=== PATIENT | male | born 1955 | race Caucasian/White ===

== ENCOUNTER 2020-11-16 14:35 | Emergency (ER) | payer BC, SELFPAY ==
--- NOTE | ~2020-11-16 | XR_ITS ---
EXAMINATION: XR chest 2V DATE: 11/16/2020 15:12 INDICATION: Cough and fever and shortness of breath. TECHNIQUE: Frontal and lateral views of the chest were obtained. COMPARISON: None. FINDINGS: There are airspace opacities in right lung upper lobe, consistent with pneumonia. No pleura l effusion or pneumothorax. The heart size is normal. IMPRESSION: 1. Right upper lobe pneumonia. Reviewed, dictated and finalized at location A.
--- NOTE | ~2020-11-16 | CT_ITS ---
EXAMINATION: CTA chest PE protocol EXAM DATE: 11/16/2020 19:52 INDICATION: SOB, elevated dimer. TECHNIQUE: Spiral CTA of the chest (pulmonary arteries) was performed with 100 cc Omnipaque 350 intr avenous contrast injection. Images were acquired during the pulmonary arterial phase. Coronal maxi mum intensity projection 3D-reconstructions were created by the technologist on dedicated workstation . Axial, coronal and sagittal reformatted images were reviewed. The dose-length product (DLP) for t his examination was 315.48 mGy-cm. The exposure was tailored according to patient size (auto mA exp osure control), and iterative reconstruction (ASIR) was used as additional dose reduction technique. There is no prior study for comparison. FINDINGS: There are no pulmonary emboli in the 1st through 3rd order (central and interlobar) pulmon lillie arteries. Some loss of attenuation in the segmental pulmonary arteries from respiratory motion, some segmental regions not confidently evaluated. No intraluminal filling defects identified. No th oracic aortic dissection. There is ill-defined right upper lobe groundglass density with regions of confluence along the bronch ovascular distribution, most likely pneumonia. Bronchoalveolar cell carcinoma not excludable, follow- up chest x-ray recommended to resolution. There are no pleural or pericardial effusions. Tracheobro nchial tree is patent. There is no mediastinal, hilar or axillary lymphadenopathy. There is no pn eumothorax. Heart normal in size. There is mild coronary arterial calcification, arterial scleros is. There are 2 liver cysts, largest right liver lobe medially at 3.4 cm. There is thoracic spondyl osis without osteoblastic or osteolytic lesions identified. IMPRESSION: 1. No central pulmonary emboli. Segmental arteries not confidently evaluated from respiratory motion . 2. Multifocal right upper lobe airspace disease, would favor bacterial pneumonia over other infectio us etiology or bronchoalveolar cell cancer. Follow-up chest x-ray indicated to resolution. Reviewed, dictated and finalized at location A. IMPRESSION: 1. No central pulmonary emboli. Segmental arteries not confidently evaluated f rom respiratory motion. 2. Multifocal right upper lobe airspace disease, would favor bacterial pneumon ia over other infectious etiology or bronchoalveolar cell cancer. Follow-up rios st x-ray indicated to resolution.
--- NOTE | 2020-11-16 14:40 | ECG_ITS ---
Measurements Intervals [place] Rate: 102 P: 62 SD: 140 QRS: -14 QRSD: 138 T: 13 QT: 328 QTc: 428 Interpretive Statements SINUS TACHYCARDIA RIGHT BUNDLE BRANCH BLOCK ABNORMAL ECG Electronically Signed On 11-16-2020 15:07:21 CDT by Rai Steward D.O.
[2020-11-16 14:42] VITALS: BP 123/73; PULSE 102; RESP 14; TEMP 38.1; O2SAT 99
[2020-11-16 15:07] LABS: Basophils Absolute Auto 0.1 K/mm3 (0.0-0.1); Basophils Percent Auto 0.5 % (0.2-1.2); Eosinophils Absolute Auto 0.1 K/mm3 (0-0.3); Eosinophils Percent Auto 1.2 % (0-4.4); Hemoglobin 13.6 g/dL (14.0-18.0); Immature Granulocyte Absolute 0.07 K/mm3 (0.00-0.031); Immature Granulocyte Percent A 0.6 % (0-0.5); Lymphocytes Absolute Auto 0.97 K/mm3 (0.9-3.2); Lymphocytes Percent Auto 8.9 % (18.3-44.2); Mean Corpuscular HGB Conc 33.2 g/dl (32-36); Mean Corpuscular Hemoglobin 29.6 pg (26-34); Mean Corpuscular Volume 89.1 fl (80-100); Mean Platelet Volume 10.5 fl (7.4-10.4); Monocytes Absolute Auto 1.1 K/mm3 (0.1-0.6); Monocytes Percent Auto 10.2 % (2.6-8.5); Neutrophils Absolute Auto 8.6 K/mm3 (1.3-6.7); Neutrophils Percent Auto 78.6 % (45.5-73.1); Platelet Count Result 294 k/mm3 (150-375); Red Cell Distribution Width 12.8 % (11.5-14.5); White Blood Count 10.9 K/mm3 (4.5-10.0)
[2020-11-16 15:15] LABS: Anion Gap 7 mmol/L (8-16); Blood Urea Nitrogen 13 mg/dL (9-20); Calcium 8.8 mg/dL (8.4-10.2); Carbon Dioxide 30 mmol/L (22-30); Chloride 100 mmol/L (98-107); Estimated CRCL calculation 65 ml/min; Estimated Glomerular Filt Rate > 60; Glucose 117 mg/dL (65-110); Potassium 4.1 mmol/L (3.4-5.0); Sodium 137 mmol/L (137-145)
[2020-11-16 17:25] LABS: Add Urine Microscopic? YES; Appearance Urine Clear (Clear); Bacteria Urine Trace /hpf; Bilirubin Urine 1+ (Negative); Blood Urine Negative (Negative); Color Urine Amber (Yellow); Glucose Urine UA Negative (Negative); Ketones Urine Trace mg/dL (Negative); Leukocyte Esterase Ur Negative LEU/UL (Negative); Mucus Urine Few /lpf; Nitrate Urine Negative (Negative); Protein Urine 2+ mg/dL (Negative); RBC Urine 21-50 /hpf (0-2); Specific Grav Ur 1.025 (1.001-1.035); Squamous Epithelial Cell Urine Rare /hpf (Few); WBC Urine 0-3 /hpf
[2020-11-16 18:20] VITALS: BP 131/84; PULSE 98; RESP 23; TEMP 36.8; O2SAT 99
[2020-11-16] MEDS: ALBUTEROL SULFATE (*SP) AEROSOL 1 PUFF 4 PUFF INHALATION (18:38)
--- NOTE | 2020-11-16 18:47 | ED.URI ---
HPI - URI/Sore Throat General Chief Complaint: Upper Respiratory Infection Stated Complaint: cough Time Seen by Provider: 11/16/20 17:57 Source: patient Mode of arrival: ambulatory Limitations: no limitations History of Present Illness HPI Narrative: This is a 65-year-old male that presents to the emergency department for cold symptoms noted since yesterday. Reports fever, cough, shortness of breath. Reports he is COVID vaccinated. Denies chest pain or lower extremity edema. Related Data Home Medications Medication Instructions Recorded Confirmed No Home Medications 11/16/20 11/16/20 Allergies Allergy/AdvReac Type Severity Reaction Status Date / Time No Known Allergies Allergy Unverified 11/16/20 18:46 Review of Systems Review of Systems: CONSTITUTIONAL: Reports fever, chills CARDIOVASCULAR: Denies chest pain, or edema. RESPIRATORY: Reports cough and dyspnea. All systems reviewed & are unremarkable except as noted in HPI and below PMFSH Past Medical History Medical History (Updated 11/16/20 @ 20:57 by Heaven Hartley PA-C) No active medical problems Social History Social History (Updated 11/16/20 @ 18:53 by Heaven Hartley PA-C) Smoking status: Never smoker Exam Narrative: GENERAL: Well-appearing, well-nourished, and in no acute distress. HEAD: Normocephalic, atraumatic. EYES: EOMI. ENT: Nares clear, no rhinorrhea or epistaxis. Mucous membranes moist. Oropharynx without tonsillar hypertrophy exudate or other lesions. Bilateral TMs pearly chun non-bulging NECK: Supple. No adenopathy or masses. CHEST: No respiratory distress. Rales in the right upper lobe. No wheezes or rhonchi HEART: Regular rate and rhythm. No murmur heard. Normal peripheral pulses. EXTREMITIES: Normal range of motion. No edema. SKIN: Warm, dry, no rash. NEURO: No focal deficits. Alert and oriented x3. PSYCH: Normal mood and affect Course Vital Signs Vital signs: Vital Signs Temperature 100.5 F H 11/16/20 14:42 Pulse Rate 102 H 11/16/20 14:42 Respiratory Rate 14 11/16/20 14:42 Blood Pressure 123/73 11/16/20 14:42 Pulse Oximetry 99 11/16/20 14:42 Temperature 98.3 F 11/16/20 18:20 Pulse Rate 98 11/16/20 18:20 Respiratory Rate 23 H 11/16/20 18:20 Blood Pressure 131/84 11/16/20 18:20 Pulse Oximetry 99 11/16/20 18:20 MDM - URI/Sore Throat Lab Data Attestation: I reviewed the patient's lab results. Result diagrams: 11/16/20 14:46 11/16/20 14:46 Labs: Lab Results 11/16/20 11/16/20 11/16/20 Range/Units 14:46 14:46 16:49 WBC 10.9 H (4.5-10.0) K/mm3 RBC 4.60 (4.6-6.20) M/mm3 Hgb 13.6 L (14.0-18.0) g/dL Hct 41.0 L (42.0-52.0) % MCV 89.1 (80-100) fl MCH 29.6 (26-34) pg MCHC 33.2 (32-36) g/dl RDW 12.8 (11.5-14.5) % Plt Count 294 (150-375) k/mm3 MPV 10.5 H (7.4-10.4) fl Immature Gran % (Auto) 0.6 H (0-0.5) % Neut % (Auto) 78.6 H (45.5-73.1) % Lymph % (Auto) 8.9 L (18.3-44.2) % Sequoyah % (Auto) 10.2 H (2.6-8.5) % Eos % (Auto) 1.2 (0-4.4) % Baso % (Auto) 0.5 (0.2-1.2) % Lymph # (Auto) 0.97 (0.9-3.2) K/mm3 Sequoyah # (Auto) 1.1 H (0.1-0.6) K/mm3 Eos # (Auto) 0.1 (0-0.3) K/mm3 Baso # (Auto) 0.1 (0.0-0.1) K/mm3 Abs Immat Gran (auto) 0.07 H (0.00-0.031) K/mm3 Absolute Neuts (auto) 8.6 H (1.3-6.7) K/mm3 Absolute Nucleated RBC 0.0 (0.0-0.012) K/mm3 Nucleated RBC % 0.0 (0.0-0.2) % PT (11.1-14.7) Seconds INR APTT (22.3-36.8) SECONDS D-Dimer (<0.48) ug/mL Sodium 137 (137-145) mmol/L Potassium 4.1 (3.4-5.0) mmol/L Chloride 100 (98-107) mmol/L Carbon Dioxide 30 (22-30) mmol/L Anion Gap 7 L (8-16) mmol/L BUN 13 (9-20) mg/dL Creatinine 0.90 (0.7-1.3) mg/dL Estim Creat Clear Calc 65 ml/min Estimated GFR > 60 (59 - ) Glucose 117 H (65-110) mg/dL Calcium 8.8 (8.4-10.2) mg/dL [place]
[2020-11-16] MEDS: SODIUM CHLORIDE 0.9% IV 500 ML 999 ML IV CONT (18:49)
[2020-11-16 19:11] LABS: INR 1.1; Prothrombin Time 13.9 Seconds (11.1-14.7)
[2020-11-16 19:12] LABS: Partial Thromboplastin Time 29.6 SECONDS (22.3-36.8)
[2020-11-16 19:17] LABS: D Dimer 0.72 ug/mL (<0.48)
[2020-11-16 19:19] LABS: Troponin I < 0.012 ng/mL (0.000-0.034)
[2020-11-16 21:29] VITALS: BP 106/76; PULSE 91; RESP 18; TEMP 37.1; O2SAT 96
[2020-11-17 17:37] LABS: SARS-CoV-2 RNA PCR Negative
== END 2020-11-16 21:31 | disposition home or self-care (01) ==
PROVIDERS: Physician Assistant; Emergency Provider Emergency Medicine
DX: Z20.822 Contact with and (suspected) exposure to COVID-19 (principal); J18.9 Pneumonia, unspecified organism
CPT/HCPCS: 36415; 71046; 71275; 80048; 81001; 84484; 85025; 85380; 85610; 85730; 87040; 87804; 93005; 96365; 96367; 96375; 99284; A9270; C9803; J0131; J0456; J0696; J7040; Q9967; U0003; U0005

== ENCOUNTER 2021-02-06 01:07 | Day surgery (SDC) | payer BC, SELFPAY ==
[2021-01-24 13:53] VITALS: BMI 25.9
[2021-02-06 07:52] VITALS: BP 121/79; PULSE 72; RESP 16; TEMP 36.4; O2SAT 100; BMI 24.7
[2021-02-06] MEDS: LACTATED RINGERS 1,000 ML 150 ML IV CONT (08:05)
--- NOTE | 2021-02-06 08:19 | WPDGICN ---
Assessment and Plan Assessment and plan (1) Encounter for screening colonoscopy: Code(s): Z12.11 - Encounter for screening for malignant neoplasm of colon Status: Acute Assessment and Plan: Patient presents for screening colonoscopy. Appears to be at average risk for colon polyps. GI Consult Note Consult date/time: 02/06/21 08:19 HPI: Everton Osman is a 65 year old male Presents for screening colonoscopy. Is been more than 10 years since last exam. Patient reports his current weight appetite and bowel movements are normal. He denies abdominal pain. He has had no bleeding. Family history is noncontributory. Review of Systems Review of Systems: All systems reviewed & are unremarkable except as noted in HPI and below PMFSH Past Medical History Medical History Pneumonia Social History Social History Smoking status: Never smoker Alcohol intake: never Substance use: never Substance use type: does not use Living arrangements: with family Spiritual care concerns: No Meds Home Medications and Allergies Home Medications Medication Instructions Recorded Confirmed Type fluticasone propionate 50 1 spray INTRANASAL DAILY PRN 11/23/20 01/24/21 History mcg/actuation nasal spray,suspension ibuprofen 200 mg capsule 200 mg PO DAILY PRN cap 11/23/20 01/24/21 History multivitamin 1 tablet PO DAILY 11/23/20 01/24/21 History atorvastatin 40 mg tablet 40 mg PO DAILY #30 tablet 11/29/20 01/24/21 Rx alendronate-vitamin D3 1 tablet PO DAILY 01/24/21 01/24/21 History lactobacillus combination no.8 1 cell PO DAILY 01/24/21 01/24/21 History [Adult Probiotic] Allergies Allergy/AdvReac Type Severity Reaction Status Date / Time No Known Allergies Allergy Verified 02/06/21 07:51 Vital Signs Vital Signs - 24 hr 02/06/21 07:52 Temperature 97.6 F Pulse Rate 72 Respiratory Rate 16 Blood Pressure 121/79 Pulse Oximetry 100 Exam Narrative: Fit physical exam reveals patient to be alert. Vital signs stable. HEENT exam is unremarkable. Patient is anicteric. Lungs are clear to auscultation and percussion. Heart is without murmur or extra sounds. Abdominal exam bowel sounds are present soft nontender with no hepatosplenomegaly. Digital external rectal exam is normal.
--- NOTE | 2021-02-06 08:24 | WPDANESEPPF ---
Anes - Initial Pre Proc Eval Procedure: Operation Date: 02/06/21 09:00 Proposed Procedures p Screening Colonoscopy - Heath Bautista MD Date/Time: 02/06/21 08:24 Surgeon: Heath Bautista MD Pre Op Diagnosis: neoplasm screening Patient Data Age: 65 Gender: M Height: 1.7 m Weight: 71.8 kg Last Vital Signs Temp 36.4 C 02/06/21 07:52 Pulse 72 02/06/21 07:52 Resp 16 02/06/21 07:52 BP 121/79 02/06/21 07:52 Pulse Ox 100 02/06/21 07:52 Allergies Allergy/AdvReac Type Severity Reaction Status Date / Time No Known Allergies Allergy Verified 02/06/21 07:51 Home Medications Medication Instructions Recorded Confirmed Type fluticasone propionate 50 1 spray INTRANASAL DAILY PRN 11/23/20 01/24/21 History mcg/actuation nasal spray,suspension ibuprofen 200 mg capsule 200 mg PO DAILY PRN cap 11/23/20 01/24/21 History multivitamin 1 tablet PO DAILY 11/23/20 01/24/21 History atorvastatin 40 mg tablet 40 mg PO DAILY #30 tablet 11/29/20 01/24/21 Rx alendronate-vitamin D3 1 tablet PO DAILY 01/24/21 01/24/21 History lactobacillus combination no.8 1 cell PO DAILY 01/24/21 01/24/21 History [Adult Probiotic] Patient hx anesthesia problems: none Family hx anesthesia problems: none Results Review: All pre-operative results and documents have been reviewed as part of the pre-operative evaluation. [facility] Past Medical History Medical History (Updated 02/06/21 @ 08:24 by Roni James MD) Hyperlipidemia Pneumonia Surgical History Surgical History (Updated 02/06/21 @ 08:24 by Roni James MD) H/O colonoscopy Social History Social History Smoking status: Never smoker Alcohol intake: never Substance use: never Substance use type: does not use Living arrangements: with family Spiritual care concerns: No Anes - Eval Final PreProcedure Day of Procedure 02/06/21 08:24 Patient weight: normal Heart: regular rate and rhythm Lungs: clear to auscultation Airway: Mallampati scale class II Neurological: alert and oriented Last oral intake: >/= 8 hours ASA classification: II Emergent: no Anesthetic plan: proceed Anesthesia type and monitoring: general GIVS and standard monitoring Results Review: All pre-operative results and documents have been reviewed as part of the pre-operative evaluation. Informed Consent: The patient's anesthetic plan and its attendant risks and benefits were discussed with the patient/family/POA. Questions were solicited and answers provided to the satisfaction of the patient/family/POA.
[2021-02-06 09:04] VITALS: BP 98/62; PULSE 76; RESP 22; O2SAT 97
[2021-02-06 09:14] VITALS: BP 105/64; PULSE 62; RESP 20; O2SAT 97
[2021-02-06 09:24] VITALS: BP 112/81; PULSE 68; RESP 20; O2SAT 98
== END 2021-02-06 09:52 | disposition home or self-care (01) ==
PROVIDERS: PCP Nurse Practitioner; Visit Provider Internal Medicine Gastroenterology
PROC: 0DJD8ZZ Inspection of Lower Intestinal Tract, Via Natural or Artificial Opening Endoscopic (ICD-10-PCS; CPT 45378; principal; 2021-02-06 09:00)
DX: Z12.11 Encounter for screening for malignant neoplasm of colon (principal); K57.30 Diverticulosis of large intestine without perforation or abscess without bleeding; K64.8 Other hemorrhoids; E78.5 Hyperlipidemia, unspecified
CPT/HCPCS: 45378; J2704; J7120

== ENCOUNTER 2021-03-18 10:13 | Emergency (ER) | payer BC, SELFPAY ==
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
[2021-03-18 10:27] VITALS: BP 123/71; PULSE 81; RESP 16; TEMP 36.3; O2SAT 98
[2021-03-18] MEDS: TETANUS,DIPHTHERIA,AC PERTUSSIS ADULT (0.5 ML) BOOSTRIX IM (11:21)
== END 2021-03-18 11:54 | disposition home or self-care (01) ==
PROVIDERS: Emergency Provider Nurse Practitioner Family
DX: S61.401A Unspecified open wound of right hand, initial encounter (principal); V48.5XXA Car driver injured in noncollision transport accident in traffic accident, initial encounter; Z23 Encounter for immunization; E78.5 Hyperlipidemia, unspecified
CPT/HCPCS: 73130; 90471; 90715; 99213; G0463

== ENCOUNTER 2021-04-03 10:22 | Outpatient (CLI) | payer BC, SELFPAY ==
--- NOTE | ~2021-04-03 | XR_ITS ---
EXAMINATION: XR chest 2V 04/03/2021 10:37 INDICATION: Follow-up pneumonia PROCEDURE: 2 view chest COMPARISON: 11/16/2020 FINDINGS: The lungs are clear. The cardiomediastinal silhouette is within normal limits. There are no pleural effusions. There is no pneumothorax suspected. IMPRESSION: 1: NO ACUTE CARDIOPULMONARY DISEASE. Reviewed, dictated and finalized at location B. ESS RIGGER
== END 2021-04-03 10:23 | disposition home or self-care (01) ==
LOC: ANHIMG 10:24
PROVIDERS: PCP Family Medicine; Visit Provider Nurse Practitioner
DX: J18.9 Pneumonia, unspecified organism (principal)
CPT/HCPCS: 71046

== ENCOUNTER 2021-05-15 00:39 | Day surgery (SDC) | payer BC, SELFPAY ==
[2021-05-03 16:55] VITALS: BMI 24.7
[2021-05-15 11:10] VITALS: BP 133/85; PULSE 85; RESP 18; TEMP 36.3; O2SAT 95
[2021-05-15] MEDS: LACTATED RINGERS 1,000 ML 150 ML IV CONT (11:20)
--- NOTE | 2021-05-15 11:28 | WPDGICN ---
Assessment and Plan Assessment and plan (1) Dysphagia: Code(s): R13.10 - Dysphagia, unspecified Status: Acute Assessment and Plan: Patient has difficulty swallowing suggesting that esophagus may be narrowed or there may be a pouch in the throat. Plan is for EGD to assess more thoroughly. Further recommendations will be given after endoscopy. GI Consult Note Consult date/time: 05/15/21 11:28 HPI: Everton Osman is a 66 year old male presents for EGD. Patient complains of difficulty swallowing over the last 6 months. He will swallow food and it will catch in the upper most portion of his throat. Often regurgitates chunks of food. He states he has produce that is phlegm that will be brought up as well. Denies any weight loss or bleeding. He states larger pieces of food typically bread will get caught. He denies any bleeding. He denies heartburn. His family history is significant for a sister with esophageal web requiring dilatation frequently. Patient presents today for EGD to evaluate more thoroughly. Patient has a history of colonoscopy most recently January 2021 that was unremarkable. Review of Systems Review of Systems: All systems reviewed & are unremarkable except as noted in HPI and below PMFSH Past Medical History Medical History Hyperlipidemia Pneumonia Surgical History Surgical History H/O colonoscopy Social History Social History Smoking status: Never smoker Alcohol intake: never Substance use: never Substance use type: does not use Living arrangements: with family Spiritual care concerns: No Meds Home Medications and Allergies Home Medications Medication Instructions Recorded Confirmed Type Adults Multivitamin 1 cap PO DAILY 05/03/21 05/03/21 History Allergies Allergy/AdvReac Type Severity Reaction Status Date / Time No Known Allergies Allergy Verified 05/15/21 11:09 Vital Signs Vital Signs - 24 hr 05/15/21 11:10 Temperature 97.4 F L Pulse Rate 85 Respiratory Rate 18 Blood Pressure 133/85 Pulse Oximetry 95 Exam Narrative: Physical exam reveals patient to be alert. Vital signs stable. HEENT exam is unremarkable. Patient is anicteric. Lungs are clear to auscultation and percussion. Heart is without murmur or extra sounds. Abdominal exam bowel sounds are present soft nontender with no organomegaly.
--- NOTE | 2021-05-15 12:04 | WPDANESEPPF ---
Anes - Initial Pre Proc Eval Procedure: Operation Date: 05/15/21 12:30 Proposed Procedures p Esophagogastroduodenoscopy - Heath Bautista MD Date/Time: 05/15/21 12:04 Surgeon: Heath Bautista MD Pre Op Diagnosis: dysphagia Patient Data Age: 66 Gender: M Height: 1.7 m Weight: 69.3 kg Last Vital Signs Temp 97.4 F L 05/15/21 11:10 Pulse 85 05/15/21 11:10 Resp 18 05/15/21 11:10 BP 133/85 05/15/21 11:10 Pulse Ox 95 05/15/21 11:10 Allergies Allergy/AdvReac Type Severity Reaction Status Date / Time No Known Allergies Allergy Verified 05/15/21 11:09 Home Medications Medication Instructions Recorded Confirmed Type Adults Multivitamin 1 cap PO DAILY 05/03/21 05/03/21 History Patient hx anesthesia problems: none Family hx anesthesia problems: none Results Review: All pre-operative results and documents have been reviewed as part of the pre-operative evaluation. PMFSH Past Medical History Medical History Hyperlipidemia Pneumonia Surgical History Surgical History H/O colonoscopy Social History Social History Smoking status: Never smoker Alcohol intake: never Substance use: never Substance use type: does not use Living arrangements: with family Spiritual care concerns: No Anes - Eval Final PreProcedure Day of Procedure 05/15/21 12:04 Patient weight: normal Heart: regular rate and rhythm Lungs: clear to auscultation Airway: Mallampati scale class II Neurological: alert and oriented Last oral intake: >/= 8 hours ASA classification: II Emergent: no Anesthetic plan: proceed Anesthesia type and monitoring: general GIVS and standard monitoring Results Review: All pre-operative results and documents have been reviewed as part of the pre-operative evaluation. Informed Consent: The patient's anesthetic plan and its attendant risks and benefits were discussed with the patient/family/POA. Questions were solicited and answers provided to the satisfaction of the patient/family/POA.
[2021-05-15 12:27] VITALS: BP 108/79; PULSE 76; RESP 15; O2SAT 98
[2021-05-15 12:37] VITALS: BP 115/82; PULSE 72; RESP 10; O2SAT 100
[2021-05-15 12:47] VITALS: BP 117/84; PULSE 72; RESP 10; O2SAT 100
== END 2021-05-15 13:03 | disposition home or self-care (01) ==
PROVIDERS: PCP Family Medicine; Visit Provider Internal Medicine Gastroenterology
PROC: 0DJ08ZZ Inspection of Upper Intestinal Tract, Via Natural or Artificial Opening Endoscopic (ICD-10-PCS; CPT 43235; principal; 2021-05-15 12:30)
DX: K22.2 Esophageal obstruction (principal); K22.10 Ulcer of esophagus without bleeding
CPT/HCPCS: 43239; 43450; 88305; J2704; J7120

== ENCOUNTER 2021-07-17 01:23 | Day surgery (SDC) | payer BC, SELFPAY ==
[2021-06-28 14:03] VITALS: BMI 26.6
--- NOTE | 2021-07-17 09:08 | P.PNAN_ITS ---
Anes - Initial Pre Proc Eval Procedure: Operation Date: 07/17/21 11:00 Proposed Procedures p Esophagogastroduodenoscopy - Heath Bautista MD Date/Time: 07/17/21 09:08 Surgeon: Heath Bautista MD Pre Op Diagnosis: Esophageal stricture Patient Data Age: 66 Gender: M Height: 1.68 m Weight: 75 kg Allergies Allergy/AdvReac Type Severity Reaction Status Date / Time No Known Allergies Allergy Verified 06/28/21 14:04 Home Medications Medication Instructions Recorded Confirmed Type Adults Multivitamin 1 cap PO DAILY 05/03/21 06/28/21 History pantoprazole 40 mg tablet,delayed 40 mg PO BID 06/28/21 06/28/21 History release Patient hx anesthesia problems: none Family hx anesthesia problems: none Results Review: All pre-operative results and documents have been reviewed as part of the pre- operative evaluation. [facility] Past Medical History Medical History (Updated 07/17/21 @ 09:09 by Oswaldo Camacho MD) Hyperlipidemia Overweight (BMI 25.0-29.9) Pneumonia Prostate CA Surgical History Surgical History H/O colonoscopy Social History Social History Smoking status: Never smoker Alcohol intake: never Substance use: never Substance use type: does not use Living arrangements: with family Spiritual care concerns: No Anes - Eval Final PreProcedure Day of Procedure 07/17/21 09:08 Patient weight: overweight Heart: regular rate and rhythm Lungs: clear to auscultation Airway: Mallampati scale class II Neurological: alert and oriented Last oral intake: >/= 8 hours ASA classification: III Emergent: no Anesthetic plan: proceed Anesthesia type and monitoring: general GIVS and standard monitoring Results Review: All pre-operative results and documents have been reviewed as part of the pre- operative evaluation. Informed Consent: The patient's anesthetic plan and its attendant risks and benefits were discussed with the patient/family/POA. Questions were solicited and answers provided to the satisfaction of the patient/family/POA.
[2021-07-17 09:56] VITALS: BP 124/83; PULSE 93; RESP 19; TEMP 36.3; O2SAT 97; BMI 27.1
[2021-07-17] MEDS: LACTATED RINGERS 1,000 ML 150 ML IV CONT (10:05)
--- NOTE | 2021-07-17 10:21 | PM.IMHP ---
H&P: HPI History of Present Illness Date/Time: 07/17/21 10:21 Chief Complaint: Esophageal ulcer, esophageal stricture in GE reflux disease. Narrative: This is a 66-year-old white male patient with a history of esophageal ulceration. Found to have esophageal stricture at the same time in May of 2021. Since that time he has been maintained on anti-reflux measures. Currently on pantoprazole 40mg p.o. b.i.d.. He denies any ongoing dysphagia. He has no heartburn or pain. Presents today for follow-up examination to document healing of this ulcer. Family history is noncontributory. He exam experience no obvious bleeding. Review of Systems Review of Systems: Review of systems noncontributory. [facility] Past Medical History Medical History (Updated 07/17/21 @ 10:22 by Heath Bautista MD) Hyperlipidemia Overweight (BMI 25.0-29.9) Pneumonia Prostate CA Surgical History Surgical History H/O colonoscopy Social History Social History Smoking status: Never smoker Alcohol intake: never Substance use: never Substance use type: does not use Living arrangements: with family Spiritual care concerns: No Meds Home Medications and Allergies Home Medications Medication Instructions Recorded Confirmed Type Adults Multivitamin 1 cap PO DAILY 05/03/21 06/28/21 History pantoprazole 40 mg tablet,delayed 40 mg PO BID 06/28/21 06/28/21 History release Allergies Allergy/AdvReac Type Severity Reaction Status Date / Time No Known Allergies Allergy Verified 06/28/21 14:04 Vital Signs Vital Signs - 24 hr 07/17/21 09:56 Temperature 97.3 F L Pulse Rate 93 Respiratory Rate 19 Blood Pressure 124/83 Pulse Oximetry 97 Oxygen Delivery Room Air Exam Narrative: Physical exam reveals patient to be alert. Vital signs stable. HEENT exam is unremarkable. Patient is anicteric. Lungs are clear to auscultation and to percussion. Heart is without murmur or extra sounds. Abdominal exam bowel sounds are present soft nontender with no organomegaly. Assessment and Plan Assessment and plan (1) Esophageal ulcer: Code(s): K22.10 - Ulcer of esophagus without bleeding Status: Acute Assessment and Plan: esophageal ulcer and stricture were identified at endoscopy in May 2021 since then he has been maintained on strict antireflux measures. He was felt to have severe GE reflux disease. Currently on pantoprazole 40mg p.o b.i.d. patient presents today for follow-up EGD to document healing ensure this is adequate treatment. Further recommendations will be given after endoscopy.
[2021-07-17 10:40] VITALS: BP 100/75; PULSE 80; RESP 19; O2SAT 99
[2021-07-17 10:50] VITALS: BP 100/77; PULSE 75; RESP 19; O2SAT 98
[2021-07-17 11:00] VITALS: BP 112/81; PULSE 71; RESP 19; O2SAT 99
== END 2021-07-17 11:13 | disposition home or self-care (01) ==
PROVIDERS: PCP Family Medicine; Visit Provider Internal Medicine Gastroenterology
PROC: 0DJ08ZZ Inspection of Upper Intestinal Tract, Via Natural or Artificial Opening Endoscopic (ICD-10-PCS; CPT 43235; principal; 2021-07-17 11:00)
DX: Q39.4 Esophageal web (principal); K21.00 Gastro-esophageal reflux disease with esophagitis, without bleeding; Z87.19 Personal history of other diseases of the digestive system; Z85.46 Personal history of malignant neoplasm of prostate
CPT/HCPCS: 43239; 43450; 88305; J2704; J7120

== ENCOUNTER 2023-08-08 01:14 | Day surgery (SDC) | payer MEDICARE, SELFPAY ==
[2023-07-29 10:46] VITALS: BMI 28.1
[2023-08-08 10:48] VITALS: BP 102/69; PULSE 76; RESP 18; TEMP 35.9; O2SAT 98; BMI 28.8
[2023-08-08] MEDS: LACTATED RINGERS 1,000 ML 150 ML IV CONT (10:57)
--- NOTE | 2023-08-08 11:49 | P.PNAN_ITS ---
Anes - Initial Pre Proc Eval Procedure: Operation Date: 08/08/23 12:30 Proposed Procedures p Esophagogastroduodenoscopy - Darvin Blankenship MD Date/Time: 08/08/23 11:49 Surgeon: Darvin Blankenship MD Pre Op Diagnosis: GERD, Esophageal web Patient Data Age: 68 Gender: M Height: 1.65 m Weight: 78.6 kg Last Vital Signs Temp 96.7 F L 08/08/23 10:48 Pulse 76 08/08/23 10:48 Resp 18 08/08/23 10:48 BP 102/69 08/08/23 10:48 Pulse Ox 98 08/08/23 10:48 O2 Del Method Room Air 08/08/23 10:48 Allergies Allergy/AdvReac Type Severity Reaction Status Date / Time No Known Allergies Allergy Verified 08/08/23 10:45 Home Medications Medication Instructions Recorded Confirmed Type Adults Multivitamin 1 cap PO DAILY 05/03/21 08/08/23 History pantoprazole 40 mg tablet,delayed 40 mg PO BID #180 tabs 05/20/23 08/08/23 Rx release cetirizine 10 mg tablet (Zyrtec) 10 mg PO DAILY 07/29/23 08/08/23 History Patient hx anesthesia problems: none Family hx anesthesia problems: none Results Review: All pre-operative results and documents have been reviewed as part of the pre- operative evaluation. [facility] Past Medical History Medical History Hyperlipidemia Overweight (BMI 25.0-29.9) Pneumonia Prostate CA Surgical History Surgical History H/O colonoscopy Previous back surgery Social History Social History Smoking status: Never smoker Alcohol intake: current Substance use: never Substance use type: does not use Living arrangements: with family Spiritual care concerns: No Anes - Eval Final PreProcedure Day of Procedure 08/08/23 11:49 Patient weight: overweight Heart: regular rate and rhythm Lungs: clear to auscultation Airway: Mallampati scale class II Neurological: alert and oriented Last oral intake: >/= 8 hours ASA classification: II Emergent: no Anesthetic plan: proceed Anesthesia type and monitoring: general and standard monitoring Results Review: All pre-operative results and documents have been reviewed as part of the pre- operative evaluation. Rich's esophagus, hx of GERD. Informed Consent: The patient's anesthetic plan and its attendant risks and benefits were discussed with the patient/family/POA. Questions were solicited and answers provided to the satisfaction of the patient/family/POA.
--- NOTE | 2023-08-08 12:37 | PM.HPGS ---
History of Present Illness History of Present Illness Consent: Risks, benefits, and alternatives have been discussed and questions answered. Patient agrees to proceed with procedure. Chief complaint: GERD, Esophageal web Narrative: Everton Osman is a 68 year old male with alan's, last egd 2021, doing well on pantoprazole bid Review of Systems Review of Systems: All systems reviewed & are unremarkable except as noted in HPI and below PMFSH Past Medical History Medical History Hyperlipidemia Overweight (BMI 25.0-29.9) Pneumonia Prostate CA Surgical History Surgical History H/O colonoscopy Previous back surgery Social History Social History Smoking status: Never smoker Alcohol intake: current Substance use: never Substance use type: does not use Living arrangements: with family Spiritual care concerns: No Meds Home Medications and Allergies Home Medications Medication Instructions Recorded Confirmed Type Adults Multivitamin 1 cap PO DAILY 05/03/21 08/08/23 History pantoprazole 40 mg tablet,delayed 40 mg PO BID #180 tabs 05/20/23 08/08/23 Rx release cetirizine 10 mg tablet (Zyrtec) 10 mg PO DAILY 07/29/23 08/08/23 History Allergies Allergy/AdvReac Type Severity Reaction Status Date / Time No Known Allergies Allergy Verified 08/08/23 10:45 Vital Signs Vital Signs - 24 hr 08/08/23 10:48 Temperature 96.7 F L Pulse Rate 76 Respiratory Rate 18 Blood Pressure 102/69 Pulse Oximetry 98 Oxygen Delivery Room Air Exam Const: General: comfortable and no acute distress HENMT: Face/Nose/Sinus: Normal nares present Eyes: General: appearance normal, both eyes and all related structures Neck: Neck: no JVD Resp: Auscultation: clear to auscultation bilaterally Cardio: Rate: regular rate Rhythm: regular rhythm GI: Inspection: non-distended GI Palp: Yes Soft to palpation Skin: General skin exam: normal color Neuro: General: gait normal Speech: normal speech Extrem: General: normal to inspection Psych: Mental Status: mental status grossly normal Assessment and Plan Assessment and plan (1) Barretts esophagus: Code(s): K22.70 - Alan's esophagus without dysplasia Status: Acute Assessment and Plan: egd with bx doing well on ppi
[2023-08-08 12:55] VITALS: BP 90/59; PULSE 67; RESP 17; O2SAT 94
[2023-08-08 13:05] VITALS: BP 104/71; PULSE 63; RESP 16; O2SAT 98
[2023-08-08 13:15] VITALS: BP 103/73; PULSE 61; RESP 19; O2SAT 100
== END 2023-08-08 13:28 | disposition home or self-care (01) ==
PROVIDERS: PCP Family Medicine; Visit Provider Internal Medicine Gastroenterology
PROC: 0DJ08ZZ Inspection of Upper Intestinal Tract, Via Natural or Artificial Opening Endoscopic (ICD-10-PCS; CPT 43235; principal; 2023-08-08 12:30)
DX: K21.00 Gastro-esophageal reflux disease with esophagitis, without bleeding (principal); K29.50 Unspecified chronic gastritis without bleeding; E78.5 Hyperlipidemia, unspecified; Z85.46 Personal history of malignant neoplasm of prostate
CPT/HCPCS: 43239; 88305; J2001; J2704; J7120